=== PATIENT | female | born 1985 | race Caucasian/White ===

== ENCOUNTER 2017-01-31 13:57 | Emergency (ER) | payer MEDICAID ==
[~2017-01-31] VITALS: Ht 157.5 cm; Wt 65.0 kg
[~2017-01-31 13:57] MED LIST: FIORIC PO; HYDR-3533 PO; IBUP800T23 PO; IMIT25TA PO; MOBI7.5T PO; NAPR500 PO; ULTR50TA PO
[2017-01-31 13:58] VITALS: BP 117/56; PULSE 118; RESP 20; TEMP 98.7; O2SAT 100
[2017-01-31] MEDS ORDERED: PENI500T PO (15:32)
--- NOTE | 2017-01-31 15:33 | PD ---
HPI Chief Complaint: ENT Complaint Time Seen by Provider: 15:13 Travel History International Travel<30 days: No Contact w/Intl Traveler<30days: No Traveled to known affect area: No History of Present Illness HPI 32-year-old female since emergency department for evaluation of sore throat and fever 4 days. Patient reports pain with swallowing but is able to eat and drink without difficulty. Reporting subjective fevers. Symptoms severity mild. No alleviating factors. PFSH Past Medical History Hx Anticoagulant Therapy: No Anemia: Yes Cardiovascular Problems: No Chemotherapy: No Cerebrovascular Accident: No Diabetes: No Diminished Hearing: No Musculoskeletal: Yes (FRACTURED COCCYX 03/15) Respiratory: No Immunizations Current: No Seizures: Yes Tetanus Vaccination: Unknown ?: Not LMP: 01/31/17 : 6 Para: 2 Miscarriage: 4 Ectopic : Yes (surgery) Tubal Ligation: Yes (TUBAL WITH SURGERY) Past Surgical History Gynecologic Surgery: Yes Hysterectomy: No Other Surgery: Yes (PYLONIDAL CYST REMOVAL) Social History Alcohol Use: No Tobacco Use: Yes (5-6 cigarettes per day) Substance Use: Yes (hx of opiate use) Allergies-Medications (Allergen,Severity, Reaction): Coded Allergies: No Known Allergies (Verified , 01/31/17) Reported Meds & Prescriptions Reported Meds & Active Scripts Active No Active Prescriptions or Reported Medications Physical Exam Narrative GENERAL: Well-nourished, well-developed patient. SKIN: Focused skin assessment warm/dry. HEAD: Normocephalic. EYES: No scleral icterus. No injection or drainage. THROAT: pharyngeal injection, with exudates, and mild tonsillar hypertrophy. Airway is patent. NECK: Supple, trachea midline. No JVD or lymphadenopathy. CARDIOVASCULAR: Regular rate and rhythm without murmurs, gallops, or rubs. RESPIRATORY: Breath sounds equal bilaterally. No accessory muscle use. GASTROINTESTINAL: Abdomen soft, non-tender, nondistended. MUSCULOSKELETAL: No cyanosis, or edema. BACK: Nontender without obvious deformity. No CVA tenderness. Data Data Last Documented VS Vital Signs Date Time Temp Pulse Resp B/P (MAP) Pulse Ox O2 Delivery O2 Flow Rate FiO2 01/31/17 13:58 98.7 118 20 117/56 (76) 100 Room Air MDM Medical Decision Making Medical Screen Exam Complete: Yes Emergency Medical Condition: Yes Differential Diagnosis Strep pharyngitis, viral pharyngitis, unspecified URI Narrative Course 32-year-old female with chief complaint of sore throat and fever 4 days. On exam patient has pharyngeal erythema with tonsillar swelling and exudate. Patient be treated for strep pharyngitis. Diagnosis Primary Impression: Tonsillitis Referrals: [facility] Additional Instructions: Take the antibiotics as prescribed. Take [id number] Motrin and/or Tylenol as needed for pain. Stay well hydrated by drinking plenty of fluids. Scripts Penicillin V Potassium (Penicillin V Potassium) 500 Mg Tab 500 MG PO BID for Infection for 10 Days, #20 TAB 0 Refills Prov: Stacie Melton 01/31/17 Disposition: 01 DISCHARGE HOME Condition: Stable Stacie Melton Jan 31, 2017 15:33
== END 2017-01-31 15:36 | disposition home or self-care (01) ==
LOC: NEPK 13:57
DX: J03.90 Acute tonsillitis, unspecified (principal); R50.9 Fever, unspecified; Z72.0 Tobacco use
CPT/HCPCS: 99283

== ENCOUNTER 2017-11-26 09:21 | Inpatient (IN) ==
[2017-11-26] MEDS ORDERED: Sod Chloride 0.9% Inj 1,000 ML IV.SIG ONE ×2 (11:50→14:49)
--- NOTE | 2017-11-26 11:55 | ED ---
HPI General Chief complaint: Abdominal Pain Stated complaint: abd pain Time Seen by Provider: 11/26/17 11:41 History of Present Illness HPI narrative: Patient is a 32-year-old female presents emergency department for evaluation of abdominal pain and to "hernias" in her lower pelvis. Patient states the pain is been going on and off for the past 2 weeks, she states that when they were searching a couch in their backyard because they are moving she also got stuck with a dirty needle that was left over in the couch. This happened on the left long finger at the finger pad. Patient also endorses a 15 pound weight loss in the past 2 weeks. States she has not been able to eat or drink anything or keep anything down. Adamantly denies any IV drug abuse or substance abuse currently. No fevers no diarrhea no cough no congestion no blood in the emesis. States only occasional alcohol ingestion. No chest pain no shortness of breath no difficulty urinating, she just started her cycle today. Denies any vaginal discharge Onset (ago): week(s) Location: abdomen Radiation: non-radiation Severity: severe Pain Consistency: constant Relieving factors: none Exacerbating factors: none Associated symptoms: nausea/vomiting Treatments prior to arrival: none Related Data Home Medications Medication Instructions Recorded Confirmed No Known Home Medications 11/26/17 11/26/17 Allergies Allergy/AdvReac Type Severity Reaction Status Date / Time No Known Allergies Allergy Verified 11/26/17 11:43 Review of Systems Except as stated in HPI: all other systems reviewed are negative [facility] Medical History Medical History Migraines (Acute) Smoker (Acute) Surgical History Surgical History H/O tubal ligation (Acute) Social History Social History Substance History: No History of Abuse Second Hand Smoke Exposure: Yes Smoking Status: Current every day smoker Tobacco Type: Cigarettes How Often Do You Have a Drink Containing Alcohol: 2 to 4 times a month Hx Recent Travel: No Recent Travel in [facility] within the Last 8 Weeks: No Recent Out of Country Travel within the Last 8 Weeks: No Immunization History Tetanus Immunization: >5 Years Hx Influenza Vaccine This Season: No Exam Narrative Exam Narrative: GENERAL: Well-developed very thin female in no obvious distress. SKIN: Focused skin assessment warm/dry. No obvious track nesbitt seen, single pinpoint wound to the left finger pad on the long finger. HEAD: Atraumatic. Normocephalic. EYES: Pupils equal and round. No scleral icterus. No injection or drainage. ENT: No nasal bleeding or discharge. Mucous membranes pink and moist. NECK: Trachea midline. No JVD. CARDIOVASCULAR: Regular rate and rhythm. No murmur appreciated. RESPIRATORY: No accessory muscle use. Clear to auscultation. Breath sounds equal bilaterally. GASTROINTESTINAL: Abdomen soft, moderately tender throughout all 4 quadrants, voluntary guarding without any involuntary guarding. No rebound no percussive tenderness, nondistended. Hepatic and splenic margins not palpable. GENITOURINARY: Exam performed with female nurse spine nurse present all time, scant bloody discharge in the vaginal vault, no cervical motion tenderness no bimanual tenderness. Fairly foul-smelling discharge however. MUSCULOSKELETAL: No obvious deformities. No clubbing. No cyanosis. No edema. NEUROLOGICAL: Awake and alert. No obvious cranial nerve deficits. Motor grossly within normal limits. Normal speech. PSYCHIATRIC: Appropriate mood and affect; insight and judgment normal. Course Initial Documented Vital Signs Temperature 97.8 F 11/26/17 09:26 Pulse Rate 124 H 11/26/17 09:26 Respiratory Rate 18 11/26/17 09:26 Blood Pressure 136/95 H 11/26/17 09:26 Pulse Oximetry 100 11/26/17 09:26 Last Documented Vital Signs Temperature 99.6 F 11/26/17 16:00 Pulse Rate 93 H 11/26/17 16:00 Respiratory Rate 17 11/26/17 16:00 Blood Pressure 122/77 11/26/17 16:00 Pulse Oximetry 100 11/26/17 12:00 Medical Decision Making [facility] Narrative Medical decision making narrative: Patient room to the emergency department, she appears uncomfortable and much older than stated age. Denies IV drug abuse today. Was fairly tachycardic out in triage, has significantly elevated white blood cell count 24,000 with left shift, source appears to be the urine however somewhat contaminated. Pelvic exam inconclusive GC CT probe was sent, and given doxycycline Rocephin and azithromycin. Rocephin will also cover for UTI. Technically meets sepsis criteria, liter of normal saline was given, lactic acid negative precluding the need for aggressive fluid resuscitation. The patient was discussed with Dr. Phillip for admission to the hospital for UTI with sepsis however PID is not definitively excluded. A CT of her abdomen was obtained and did not show any obvious abnormality. Vital signs have been stable Differential Diagnosis Differential Diagnosis: Sepsis, PID, UTI, pyelonephritis, appendicitis, acute abdomen unlikely. Lab Data Result diagrams: 11/26/17 12:00 11/26/17 12:00 Lab Results 11/26/17 11/26/17 11/26/17 Range/Units 12:00 12:00 12:41 WBC 24.7 H (4.0-11.0) th/mm3 RBC 4.33 (4.00-5.30) mil/mm3 Hgb 13.1 (11.6-15.3) gm/dL Hct 38.9 (35.0-46.0) % MCV 89.8 (80.0-100.0) fL MCH 30.4 (27.0-34.0) pg MCHC 33.8 (32.0-36.0) % RDW 15.5 (11.6-17.2) % Plt Count 419 (150-450) th/mm3 MPV 8.1 (7.0-11.0) fL Neut % (Auto) 92.1 H (16.0-70.0) % Lymph % (Auto) 4.5 L (9.0-44.0) % [place] % (Auto) 3.3 (0.0-8.0) % Eos % (Auto) 0.0 (0.0-4.0) % Baso % (Auto) 0.1 (0.0-2.0) % Neut # (Auto) 22.8 H (1.8-7.7) th/mm3 Lymph # (Auto) 1.1 (1.0-4.8) th/mm3 [place] # (Auto) 0.8 (0.0-0.9) th/mm3 Eos # (Auto) 0.0 (0.0-0.4) th/mm3 Baso # (Auto) 0.0 (0.0-0.2) th/mm3 WBC Differential . Differential Comment Auto diff final Sodium 138 (136-145) meq/L Potassium 3.7 (3.5-5.1) meq/L Chloride 105 (98-107) meq/L Carbon Dioxide 23.8 (21.0-32.0) meq/L Anion Gap 9 (5-15) meq/L BUN 7 (7-18) mg/dL Creatinine 0.64 (0.50-1.00) mg/dL Estimated GFR Greater than 89 (>89) mL/min Random Glucose 124 H (74-106) mg/dL Lactic Acid (0.4-2.0) mmol/L Calcium 9.0 (8.5-10.1) mg/dL Total Bilirubin 0.5 (0.2-1.0) mg/dL AST 13 L (15-37) U/L ALT 23 (10-53) U/L Alkaline Phosphatase 97 (45-117) U/L Total Protein 7.2 (6.4-8.2) g/dL Albumin 3.3 L (3.4-5.0) g/dL Lipase 53 L (73-393) U/L Urine Color Yellow (Yellw/Straw) Urine Clarity Hazy H (Clear) Urine pH 7.0 (5.0-8.5) Ur Specific [place] 1.019 (1.002-1.035) Urine Protein 30 H (Neg-Trace) mg/dL Urine Glucose (UA) Negative (Negative) mg/dL Urine Ketones 20 (Negative) mg/dL Urine Occult Blood Moderate H (Negative) Urine Nitrate Negative (Negative) Urine Bilirubin Negative (Negative) Urine Urobilinogen 4 or greater (Less than 2) mg/dL Ur Leukocyte Esterase Small H (Negative) Urine RBC 7 H (0-3) /hpf Urine WBC 56 H (0-5) /hpf Urine WBC Clumps Rare H (None) Ur Squamous Epith Cells 8 (0-5) /hpf Urine Bacteria Many H (None) /hpf Urine Mucus Many H (Occasional) /lpf Micro UA Comment Culture indicated Urine Culture Comments Culture indicated Clue Cells (Wet Prep) (None Seen) Trichomonas (Wet Prep) (None Seen) Yeast (Wet Prep) (None Seen) Urine Opiates Screen (Neg) Ur Barbiturates Screen (Neg) Ur Amphetamines Screen (Neg) U Benzodiazepines Scrn (Neg) Urine Cocaine Screen (Neg) U Cannabinoids Screen (Neg) 11/26/17 11/26/17 11/26/17 Range/Units 12:41 14:35 15:20 WBC (4.0-11.0) th/mm3 RBC (4.00-5.30) mil/mm3 Hgb (11.6-15.3) gm/dL Hct (35.0-46.0) % MCV (80.0-100.0) fL MCH (27.0-34.0) pg MCHC (32.0-36.0) % RDW (11.6-17.2) % Plt Count (150-450) th/mm3 MPV (7.0-11.0) fL Neut % (Auto) (16.0-70.0) % Lymph % (Auto) (9.0-44.0) % [place] % (Auto) (0.0-8.0) % Eos % (Auto) (0.0-4.0) % Baso % (Auto) (0.0-2.0) % Neut # (Auto) (1.8-7.7) th/mm3 Lymph # (Auto) (1.0-4.8) th/mm3 [place] # (Auto) (0.0-0.9) th/mm3 Eos # (Auto) (0.0-0.4) th/mm3 Baso # (Auto) (0.0-0.2) th/mm3 WBC Differential Differential Comment Sodium (136-145) meq/L Potassium (3.5-5.1) meq/L Chloride (98-107) meq/L Carbon Dioxide (21.0-32.0) meq/L Anion Gap (5-15) meq/L BUN (7-18) mg/dL Creatinine (0.50-1.00) mg/dL Estimated GFR (>89) mL/min Random Glucose (74-106) mg/dL Lactic Acid 1.4 (0.4-2.0) mmol/L Calcium (8.5-10.1) mg/dL Total Bilirubin (0.2-1.0) mg/dL AST (15-37) U/L ALT (10-53) U/L Alkaline Phosphatase (45-117) U/L Total Protein (6.4-8.2) g/dL Albumin (3.4-5.0) g/dL Lipase (73-393) U/L Urine Color (Yellw/Straw) Urine Clarity (Clear) Urine pH (5.0-8.5) Ur Specific [place] (1.002-1.035) Urine Protein (Neg-Trace) mg/dL Urine Glucose (UA) (Negative) mg/dL Urine Ketones (Negative) mg/dL Urine Occult Blood (Negative) Urine Nitrate (Negative) Urine Bilirubin (Negative) Urine Urobilinogen (Less than 2) mg/dL Ur Leukocyte Esterase (Negative) Urine RBC (0-3) /hpf Urine WBC (0-5) /hpf Urine WBC Clumps (None) Ur Squamous Epith Cells (0-5) /hpf Urine Bacteria (None) /hpf Urine Mucus (Occasional) /lpf Micro UA Comment Urine Culture Comments Clue Cells (Wet Prep) None seen (None Seen) Trichomonas (Wet Prep) None seen (None Seen) Yeast (Wet Prep) None seen (None Seen) Urine Opiates Screen Neg (Neg) Ur Barbiturates Screen Neg (Neg) Ur Amphetamines Screen Neg (Neg) U Benzodiazepines Scrn Neg (Neg) Urine Cocaine Screen Neg (Neg) U Cannabinoids Screen Pos H (Neg) Imaging Data Radiologist's impression: Abdomen/Pelvis CT 11/26/17 11:49 CONCLUSION: 1. Nonspecific, nonobstructive bowel gas pattern which may represent a mild ileus and/or gastroenteritis. 2. Unremarkable gallbladder. Discharge Plan Discharge Disposition Patient Disposition: 30 Still Patient Discharge Details Diagnosis: UTI (urinary tract infection), Sepsis Physicians Team ED Provider: Judah Darnell Primary Care Provider: Primary Care Kianna Edwards Attending Provider: Mick Meraz Discharge Interventions Interventions: Vital Signs Last Done: 11/26/17 16:00 Status ED Status: Admitted Observation Patient
[2017-11-26] MEDS ORDERED: Diatrizoate Meglum/Diatrizoate Sod Liq 9 ML UDC ONE (12:12)
[2017-11-26] MEDS ORDERED: Diatrizoate Meglum/Diatrizoate Sod Liq 9 ML UDC PO ONE (12:45)
[2017-11-26 13:04] LABS: Baso % (Auto) 0.1 % (0.0-2.0); Hematocrit 38.9 % (35.0-46.0); Hemoglobin 13.1 gm/dL (11.6-15.3); Lymph # (Auto) 1.1 th/mm3 (1.0-4.8); Lymph % (Auto) 4.5 % (9.0-44.0); Mean Corpuscular HGB Conc 33.8 % (32.0-36.0); Mean Corpuscular Hemoglobin 30.4 pg (27.0-34.0); Mean Corpuscular Volume 89.8 fL (80.0-100.0); Mean Platelet Volume 8.1 fL (7.0-11.0); Mono # (Auto) 0.8 th/mm3 (0.0-0.9); Mono % (Auto) 3.3 % (0.0-8.0); Neut # (Auto) 22.8 th/mm3 (1.8-7.7); Neut % (Auto) 92.1 % (16.0-70.0); Platelet Count 419 th/mm3 (150-450); Red Blood Count 4.33 mil/mm3 (4.00-5.30); Red Cell Distribution Width 15.5 % (11.6-17.2); White Blood Count 24.7 th/mm3 (4.0-11.0)
[2017-11-26 13:45] LABS: Bilirubin,Urine Negative (Negative); Clarity,Urine Hazy (Clear); Color,Urine Yellow (Yellw/Straw); Glucose,Urine (UA) Negative (Negative); Leukocyte Esterase,Urine Small (Negative); Mucus,Urine Many /lpf (Occasional); Nitrite,Urine Negative (Negative); Specific Gravity,Urine 1.019 (1.002-1.035); Squamous Epithelial Cell,Urine 8 /hpf (0-5); Urobilinogen,Urine 4 or Greater mg/dL (Less than 2)
[2017-11-26 13:46] LABS: Bacteria,Urine Many /hpf
[2017-11-26 13:50] LABS: Anion Gap 9 meq/L (5-15); Blood Urea Nitrogen 7 mg/dL (7-18); Carbon Dioxide 23.8 meq/L (21.0-32.0); Chloride 105 meq/L (98-107); Glomerular Filtration Rate Greater Than 89 mL/min (>89); Glucose,Random 124 mg/dL (74-106); Potassium 3.7 meq/L (3.5-5.1); Sodium 138 meq/L (136-145)
[2017-11-26 13:51] LABS: Alanine Aminotransferase 23 U/L (10-53); Albumin 3.3 g/dL (3.4-5.0); Alkaline Phosphatase 97 U/L (45-117); Aspartate Aminotransferase 13 U/L (15-37); Lipase 53 U/L (73-393); Total Protein 7.2 g/dL (6.4-8.2)
--- NOTE | 2017-11-26 14:22 | CT ---
EXAM DATE: 11/26/2017 2:01 PM EDT AGE/SEX: 32 years / Female INDICATIONS: Diffuse abdominal pain. CLINICAL DATA: This is the patient's initial encounter. Patient reports that signs and symptoms have been present for 1 day and indicates a pain score of 7/10. MEDICAL/SURGICAL HISTORY: None. Tubal ligation. ORAL CONTRAST: Prescribed oral contrast ingested. RADIATION DOSE: 4.87 CTDI (mGy) COMPARISON: [facility] [place], CT ABDOMEN & PELVIS W CONTRAST, 04/02/2015. . TECHNIQUE: Multiple contiguous axial images were obtained through the abdomen and pelvis following b olus infusion of 90 ml Omnipaque 350 (iohexol) nonionic water-soluble contrast as a single exam dos e. Prescribed oral contrast ingested. Using automated exposure control and adjustment of the mA and/ or kV according to patient size, radiation dose was kept as low as reasonably achievable to obtain op timal diagnostic quality images. DICOM format image data is available electronically for review and comparison. FINDINGS: Lower Lungs: The visualized lower lungs are clear. Liver: The liver has a homogeneous density without space-occupying lesion. There is no dilation of th e biliary tree. Spleen: Homogeneous density without enlargement. Pancreas: Unremarkable without mass or calcification. Kidneys: Normal in size and shape. No evidence of mass or hydronephrosis. Adrenal Glands: Unremarkable. Aorta: The aorta and proximal iliac vessels are grossly unremarkable without aneurysmal dilation. Bowel/Mesentery: There are multiple loops of nondilated air-containing small bowel with several smal l air-fluid levels. Gas and stool is noted throughout the colon. There is no free air or fluid. Abdominal Wall: Intact. Retroperitoneum: No evidence of adenopathy in the retrocrural, para-aortic, or deep pelvic regions. Bladder: Contours are smooth. Reproductive Organs: No abnormal masses or calcifications seen. Inguinal: The inguinal region is unremarkable without evidence of adenopathy. Bony Structures: Unremarkable. CONCLUSION: 1. Nonspecific, nonobstructive bowel gas pattern which may represent a mild ileus and/or gastroenter itis. 2. Unremarkable gallbladder. Electronically signed by: Willie Ron MD 11/26/2017 2:20 PM EDT
[2017-11-26] MEDS ORDERED: Morphine Inj 4 MG/ML Vial IV.PUSH ONE (15:12)
[2017-11-26] MEDS ORDERED: Azithromycin 250 MG Tablet PO ONE (15:12)
[2017-11-26 16:03] LABS: Amphetamine Screen,Urine Neg (Neg); Barbiturate Screen,Urine Neg (Neg); Cannabinoid Screen,Urine Pos (Neg); Cocaine Screen,Urine Neg (Neg)
[2017-11-26 16:13] LABS: Opiate Screen,Urine Neg (Neg)
[2017-11-26] MEDS ORDERED: Bisacodyl 10 MG Supp RECTAL PRN (16:30)
[2017-11-26] MEDS ORDERED: Acetaminophen 325 MG Tablet PO PRN ×2 (16:30→16:34)
[2017-11-26] MEDS ORDERED: Temazepam 15 MG Capsule PO PRN (16:30)
[2017-11-26] MEDS ORDERED: Naloxone Inj 0.4 MG/ML Vial IV.PUSH PRN (16:34)
[2017-11-26] MEDS ORDERED: Morphine Inj 4 MG/ML Vial IV.PUSH PRN ×2 (16:34)
--- NOTE | 2017-11-26 17:19 | P.HPIM ---
History of Present Illness Service: [facility] Primary Care Physician: CRISSY ROSE DO Chief Complaint: ABDOMINAL PAIN History of Present Illness: Patient is a 32-year-old female who appears much older than her stated age who presents with abdominal pain in her pelvis. Patient states the pain has been going on now for the past couple weeks. She states that they were recently searching a couch in their backyard because they are moving. She also states she gets stuck with a dirty needle was left over on the couch. Happened in her left long finger at the finger pad. Endorses a 15 pound weight loss in the past 2 weeks. States she has not been able to eat or drink anything or keep anything down. She denies any IV drug use or substance abuse. Denies any fevers or diarrhea cough or congestion or blood in the emesis. She states occasional alcohol use. Smokes a pack a day. Denies any chest pain or shortness of breath and some difficulty urinating. She states she just started her menstrual cycle today. Denies any vaginal discharge. She states the pain is severe. Has had some nausea and vomiting and some back pain Found to have urinary tract infection. Emergency department was seen by the ER physician had a pelvic exam and was treated with Rocephin and doxycycline and Zithromax for suspected pelvic inflammatory disease Review of Systems All other systems reviewed negative except as stated in HPI Constitutional: Reports anorexia, Reports body ache(s), Reports chills, Reports fatigue, Reports malaise, Reports weight loss, Denies daytime sleepiness, Denies excessive sweating, Denies fever(s), Denies headache(s), Denies increased appetite, Denies lack of energy, Denies night sweats, Denies weakness , Denies weight gain Eyes: Denies blind spots, Denies blurry vision, Denies bulging eyes, Denies discharge, Denies dry eyes, Denies floaters, Denies pain, Denies requires corrective lenses Ears, Nose, Mouth, and Throat: Denies abnormal hearing, Denies dental pain, Denies ear pain, Denies lip swelling, Denies nasal discharge, Denies nose pain, Denies ringing in the ears, Denies throat swelling Cardiovascular: Denies chest pain, Denies fainting, Denies irregular heart rhythm, Denies lightheadedness, Denies rapid, pounding, or irregular heartbeat, Denies shortness of breath with activity, Denies shortness of breath causing sudden awakening Respiratory: Denies change in phlegm color, Denies excessive phlegm production, Denies shortness of breath, Denies wheezing Gastrointestinal: Reports abdominal pain, Reports nausea Musculoskeletal: Reports back pain, Denies abnormal walking, Denies deformity, Denies loss of height, Denies radiating pain into limb Skin/Breast: Denies bleeding lesions, Denies breast pain, Denies hair loss, Denies non-healing lesions, Denies skin ulcer Neurologic: Denies abnormal hearing, Denies abnormal walking, Denies dizziness, Denies localized weakness, Denies other visual disturbances, Denies seizure- like activity, Denies tingling/numbness/burning sensations Psychiatric: Denies abnormal sleep pattern, Denies change in sex drive, Denies hearing things others do not hear Endocrine: Denies cold intolerance, Denies increased hunger, Denies rapid, pounding, or irregular heartbeat Hematologic/Lymphatic: Denies easy bleeding, Denies easy bruising Allergic/Immunologic: Denies GI upset with certain foods, Denies hives, Denies seasonal runny nose, Denies throat swelling PMFSH - History History Provided By: Patient - Medical History Medical History: Medical History (Last Updated 11/26/17 @ 16:58 by Mick Meraz DO) Migraines Smoker - Surgical History Surgical History: Surgical History (Last Updated 11/26/17 @ 11:47 by Dayanna Jackman) H/O tubal ligation - Tobacco History Second Hand Smoke Exposure: Yes Tobacco Use In Past 30 Days: Yes Smoking Status: Current every day smoker Tobacco Type: Cigarettes - Alcohol History How Often Do You Have a Drink Containing Alcohol: 2 to 4 times a month - Substance Use History Substance History: No History of Abuse - Travel History History of Recent Travel: No Recent Travel in the [place] Within the Last 8 Weeks: No Recent Travel Out of the Country Within the Last 8 Weeks: No - Immunization History Tetanus Immunization: >5 Years Hx Influenza Vaccine This Season: No Medications and Allergies Active Medications: Active Medications Acetaminophen (Tylenol) 650 mg PO Q4H PRN PRN Reason: Temp > 100.4 Acetaminophen (Tylenol) 650 mg PO Q6H PRN PRN Reason: PAIN SCALE 1 TO 2 Al Hydroxide/Mg Hydroxide (Milk Of Magnesia Liq) 30 ml PO Q12H PRN PRN Reason: Mild Constipation Bisacodyl (Dulcolax Supp) 10 mg RECTAL DAILY PRN PRN Reason: SEVERE CONSITIPATION Clonidine HCl (Catapres) 0.1 mg PO Q6H PRN PRN Reason: FOR SBP>160 OR DBP >95 Enoxaparin Sodium (Lovenox Inj) 40 mg SQ Q24H MATTHIAS Sodium Chloride (Ns Inj) 1,000 mls @ 100 mls/hr IV.CONT .Q10H MATTHIAS Ceftriaxone Sodium 1,000 mg/ (Sodium Chloride) 100 mls @ 200 mls/hr IV.SIG Q24H MATTHIAS Lactulose (Lactulose Liq) 30 ml PO DAILY PRN PRN Reason: SEVERE CONSITIPATION Morphine Sulfate (Morphine Inj) 2 mg IV.PUSH Q3H PRN PRN Reason: PAIN 3-5; IF UABLE TO TAKE PO Morphine Sulfate (Morphine Inj) 4 mg IV.PUSH Q3H PRN PRN Reason: PAIN 6-10;IF UNABLE TO TAKE PO Naloxone HCl (Narcan Inj) 0.4 mg IV.PUSH UNSCH PRN PRN Reason: SEE LABEL COMMENTS Ondansetron HCl (Zofran Odt) 4 mg PO Q6H PRN PRN Reason: NAUSEA OR VOMITING Oxycodone/Acetaminophen (Percocet 10/325 Mg) 1 tab PO Q6H PRN PRN Reason: PAIN SCALE 6 TO 10 Oxycodone/Acetaminophen (Percocet 5/325 Mg) 1 tab PO Q6H PRN PRN Reason: PAIN SCALE 3 TO 5 Senna/Docusate Sodium (Bettie-Colace) 1 tab PO BID MATTHIAS Sennosides (Senokot) 17.2 mg PO Q12H PRN PRN Reason: Moderate Constipation Sodium Chloride (Ns Flush) 2 ml IV.FLUSH PRN PRN PRN Reason: FLUSH AFTER USING IV ACCESS Last Admin: 11/26/17 15:24 Dose: 2 ml Temazepam (Restoril) 15 mg PO HS PRN PRN Reason: INSOMNIA Allergies Allergy/AdvReac Type Severity Reaction Status Date / Time No Known Allergies Allergy Verified 11/26/17 11:43 Home Medications Medication Instructions Recorded Confirmed Type No Known Home Medications 11/26/17 11/26/17 History Exam Vital signs: Vital Signs 11/26/17 09:26 07/24/18 12:00 Temperature 97.8 F 97.9 F Pulse Rate 124 H 98 H Respiratory Rate 18 18 Blood Pressure 136/95 H 124/81 Pulse Oximetry 100 100 Intake & Output 11/25/17 11/26/17 11/26/17 18:59 06:59 18:59 Weight 49.895 kg Narrative: GENERAL: Awake alert and oriented 3 talkative and cooperative appears much older than stated age very thin appearing female SKIN: Warm and dry. Multiple tattoos HEAD: Atraumatic. Normocephalic. EYES: Pupils equal and round. No scleral icterus. No injection or drainage. ENT: No nasal bleeding or discharge. Mucous membranes pink and moist. Poor dentition NECK: Trachea midline. No JVD. Supple CARDIOVASCULAR: Regular rate and rhythm. S1-S2 no S3 or S4 RESPIRATORY: No accessory muscle use. Clear to auscultation. Breath sounds equal bilaterally. GASTROINTESTINAL: Abdomen soft, non-tender, nondistended. Hepatic and splenic margins not palpable. MUSCULOSKELETAL: Extremities without clubbing, cyanosis, or edema. No obvious deformities. Has some CVA tenderness in the back NEUROLOGICAL: Awake and alert. No obvious cranial nerve deficits. Motor grossly within normal limits. Five out of 5 muscle strength in the arms and legs. Normal speech. PSYCHIATRIC: Appropriate mood and affect; insight and judgment normal. Results - Labs CBC & Chem 7: 11/26/17 12:00 11/26/17 12:00 Labs: Short CBC 11/26/17 Range/Units 12:00 WBC 24.7 H (4.0-11.0) th/mm3 Hgb 13.1 (11.6-15.3) gm/dL Hct 38.9 (35.0-46.0) % Plt Count 419 (150-450) th/mm3 BMP 11/26/17 12:00 Sodium 138 Potassium 3.7 Chloride 105 Carbon Dioxide 23.8 BUN 7 Creatinine 0.64 Calcium 9.0 Liver Function 11/26/17 Range/Units 12:00 Total Bilirubin 0.5 (0.2-1.0) mg/dL AST 13 L (15-37) U/L ALT 23 (10-53) U/L Alkaline Phosphatase 97 (45-117) U/L Albumin 3.3 L (3.4-5.0) g/dL Urine 11/26/17 Range/Units 12:41 Urine Color Yellow (Yellw/Straw) Urine Clarity Hazy H (Clear) Urine pH 7.0 (5.0-8.5) Ur Specific [place] 1.019 (1.002-1.035) Urine Protein 30 H (Neg-Trace) mg/dL Urine Glucose (UA) Negative (Negative) mg/dL - Imaging Impressions Abdomen/Pelvis CT 11/26/17 11:49 CONCLUSION: 1. Nonspecific, nonobstructive bowel gas pattern which may represent a mild ileus and/or gastroenteritis. 2. Unremarkable gallbladder. Caprini VTE Risk Assessment Caprini VTE Risk Assessment: No/Low Risk (score <= 1) Caprini Risk Assessment Model: Point Value = 1 Point Value = 2 Point Value = 3 Point Value = 5 Age 41-60 Minor surgery BMI > 25 kg/m2 Swollen legs Varicose veins or History of unexplained or recurrent spontaneous Oral contraceptives or hormone replacement Sepsis (< 1 month) Serious lung disease, including pneumonia (< 1 month) Abnormal pulmonary function Acute myocardial infarction Congestive heart failure (< 1 month) History of inflammatory bowel disease Medical patient at bed rest Age 61-74 Arthroscopic surgery Major open surgery (> 45 min) Laparoscopic surgery (> 45 min) Malignancy Confined to bed (> 72 hours) Immobilizing plaster cast Central venous access Age >= 75 History of VTE Family history of VTE Factor V Leiden Prothrombin [id number] Lupus anticoagulant Anticardiolipin antibodies Elevated serum homocysteine Heparin-induced thrombocytopenia Other congenital or acquired thrombophilia Stroke (< 1 month) Elective arthroplasty Hip, pelvis, or leg fracture Acute spinal cord injury (< 1 month) Prophylaxis Regimen: Total Risk Factor Score Risk Level Prophylaxis Regimen 0-1 Low Early ambulation 2 Moderate Order ONE of the following: *Sequential Compression Device (SCD) *Heparin 5000 units SQ BID 3-4 Higher Order ONE of the following medications: *Heparin 5000 units SQ TID *Enoxaparin/Lovenox 40 mg SQ daily (WT < 150 kg, CrCl > 30 mL/min) *Enoxaparin/Lovenox 30 mg SQ daily (WT < 150 kg, CrCl > 10-29 mL/min) *Enoxaparin/Lovenox 30 mg SQ BID (WT < 150 kg, CrCl > 30 mL/min) AND/OR *Sequential Compression Device (SCD) 5 or more Highest Order ONE of the following medications: *Heparin 5000 units SQ TID (Preferred with Epidurals) *Enoxaparin/Lovenox 40 mg SQ daily (WT < 150 kg, CrCl > 30 mL/min) *Enoxaparin/Lovenox 30 mg SQ daily (WT < 150 kg, CrCl > 10-29 mL/min) *Enoxaparin/Lovenox 30 mg SQ BID (WT < 150 kg, CrCl > 30 mL/min) AND *Sequential Compression Device (SCD) Assessment and Plan - Plan Urinary tract infection continue on Rocephin and fluids and Tylenol as needed and pain control Abdominal pain status post CAT scan stable continue Rocephin and fluids and Tylenol Sepsis/surgery due to UTI continue on IV fluid rehydration Tylenol as needed antibiotics with Rocephin is also been given a dose of Zithromax and doxycycline per the emergency department Leukocytosis suspect secondary to sepsis and UTI continue on the Rocephin and fluids and Marijuana use recommend cessation Diet and activity as tolerated Continue aggressive fluid rehydration A.m. labs Pain medications as needed History of migraine headaches currently not having any Code Status: Full code Discussed Condition With: RN and patient and family and emergency room physician Discharge Planning: Pending improvement
[2017-11-26] MEDS: Sod Chloride 0.9% Inj 1,000 ML IV.CONT SCH (17:22)
[2017-11-26] MEDS: Enoxaparin Inj 40 MG/0.4 ML Syringe SQ SCH (17:22)
[2017-11-26] MEDS: oxyCODONE/Acetaminophen 10/325 Tablet PO PRN (17:48)
[2017-11-26] MEDS: Senna/Docusate Sodium 8.6/50 MG Tablet PO SCH (21:17)
[2017-11-27] MEDS: oxyCODONE/Acetaminophen 10/325 Tablet PO PRN ×4 (00:55→21:34)
[2017-11-27] MEDS: Sod Chloride 0.9% Inj 1,000 ML IV.CONT SCH ×4 (00:59→23:53)
[2017-11-27 07:33] LABS: Baso % (Auto) 0.2 % (0.0-2.0); Eos # (Auto) 0.1 th/mm3 (0.0-0.4); Eos % (Auto) 0.6 % (0.0-4.0); Hematocrit 32.3 % (35.0-46.0); Hemoglobin 10.6 gm/dL (11.6-15.3); Lymph % (Auto) 13.5 % (9.0-44.0); Mean Corpuscular HGB Conc 32.9 % (32.0-36.0); Mean Corpuscular Hemoglobin 29.5 pg (27.0-34.0); Mean Corpuscular Volume 89.7 fL (80.0-100.0); Mean Platelet Volume 8.1 fL (7.0-11.0); Mono # (Auto) 1.1 th/mm3 (0.0-0.9); Mono % (Auto) 7.4 % (0.0-8.0); Neut # (Auto) 11.4 th/mm3 (1.8-7.7); Neut % (Auto) 78.3 % (16.0-70.0); Platelet Count 364 th/mm3 (150-450); Red Blood Count 3.61 mil/mm3 (4.00-5.30); Red Cell Distribution Width 15.2 % (11.6-17.2); White Blood Count 14.5 th/mm3 (4.0-11.0)
[2017-11-27 07:50] LABS: Alanine Aminotransferase 18 U/L (10-53); Albumin 2.7 g/dL (3.4-5.0); Anion Gap 7 meq/L (5-15); Aspartate Aminotransferase 11 U/L (15-37); Blood Urea Nitrogen 7 mg/dL (7-18); Calcium 7.9 mg/dL (8.5-10.1); Carbon Dioxide 25.5 meq/L (21.0-32.0); Chloride 113 meq/L (98-107); Cholesterol 99 mg/dL (120-200); Glomerular Filtration Rate Greater Than 89 mL/min (>89); Glucose,Random 80 mg/dL (74-106); Magnesium 1.9 mg/dL (1.5-2.5); Potassium 3.8 meq/L (3.5-5.1); Sodium 145 meq/L (136-145)
[2017-11-27 07:58] LABS: Alkaline Phosphatase 88 U/L (45-117); Chol/HDL Ratio 2.02 Ratio; Free T4 (Free Thyroxine) 1.05 ng/dL (0.76-1.46); LDL Cholesterol,Calculated 41 mg/dL (0-99); Phosphorus 2.2 mg/dL (2.5-4.9); Total Protein 5.8 g/dL (6.4-8.2); Triglycerides 44 mg/dL (42-150)
[2017-11-27] MEDS: Senna/Docusate Sodium 8.6/50 MG Tablet PO SCH ×2 (08:05→20:49)
--- NOTE | 2017-11-27 11:50 | P.PNIM ---
Subjective Interval history: Patient reports bilateral inguinal tender lumps. She also admits that she has been having some vaginal discharge over the past few days. Tolerating her diet. Still reports some diffuse abdominal discomfort. Physical Exam Vital signs: Vital Signs 11/26/17 12:00 11/26/17 16:00 11/26/17 17:30 Temperature 97.9 F 99.6 F 100.1 F H Pulse Rate 98 H 93 H 96 H Respiratory Rate 18 17 16 Blood Pressure 124/81 122/77 133/68 Pulse Oximetry 100 11/26/17 20:00 11/27/17 00:00 11/27/17 08:00 Temperature 97.7 F 97.9 F 97.6 F Pulse Rate 92 H 82 81 Respiratory Rate 18 18 17 Blood Pressure 107/53 L 105/56 L 106/58 L Pulse Oximetry 98 99 97 Intake & Output 11/26/17 11/27/17 11/27/17 18:59 06:59 18:59 Intake Total 2100 / 2100 1000 / 1000 Balance 2100 / 2100 1000 / 1000 Weight 49.895 kg Intake: IV 2100 / 2100 1000 / 1000 NS Inj 1,000 ML @ 100 mls/hr IV 1000 / 1000 .CONT .Q10H MATTHIAS Rx#:[id number] NS Inj 1,000 ML @ Wide Open IV. 1999 / 1999 SIG BOLUS ONE Rx#:[id number] Rocephin Inj 1,000 MG In NS Inj 100 / 100 100 ML @ 200 mls/hr IV.SIG ONCE ONE Rx#:[id number] Other: # Voids 3 Date of Last Bowel Movement 11/23/17 Narrative: GENERAL: This is a well-nourished, well-developed patient, in no apparent distress. Patient examined with nurse Tovar. CARDIOVASCULAR: Normal rate and regular rhythm without murmurs, gallops, or rubs. RESPIRATORY: Good respiratory efforts. Breath sounds equal and clear to auscultation bilaterally. GASTROINTESTINAL: Abdomen soft, nondistended. Diffuse mild abdominal discomfort to palpation. Tender bilateral inguinal lymphadenopathy MUSCULOSKELETAL: Extremities without cyanosis, or edema. NEURO: Alert & Oriented x4 to person, place, time, situation. Moves all ext x4 PSYCH: Appropriate mood and affect. Results - Labs CBC & Chem 7: 11/27/17 06:25 11/27/17 06:25 Laboratory Results - last 24 hr 11/26/17 11/26/17 11/26/17 12:00 12:00 12:41 WBC 24.7 H RBC 4.33 Hgb 13.1 Hct 38.9 MCV 89.8 MCH 30.4 MCHC 33.8 RDW 15.5 Plt Count 419 MPV 8.1 Neut % (Auto) 92.1 H Lymph % (Auto) 4.5 L Baxter % (Auto) 3.3 Eos % (Auto) 0.0 Baso % (Auto) 0.1 Neut # (Auto) 22.8 H Lymph # (Auto) 1.1 Baxter # (Auto) 0.8 Eos # (Auto) 0.0 Baso # (Auto) 0.0 WBC Differential . Differential Comment Auto diff final Sodium 138 Potassium 3.7 Chloride 105 Carbon Dioxide 23.8 Anion Gap 9 BUN 7 Creatinine 0.64 Estimated GFR Greater than 89 Random Glucose 124 H Lactic Acid Calcium 9.0 Phosphorus Magnesium Total Bilirubin 0.5 AST 13 L ALT 23 Alkaline Phosphatase 97 Total Protein 7.2 Albumin 3.3 L Triglycerides Cholesterol LDL Cholesterol, Calc HDL Cholesterol Cholesterol/HDL Ratio Lipase 53 L TSH Free T4 Urine Color Yellow Urine Clarity Hazy H Urine pH 7.0 Ur Specific [place] 1.019 Urine Protein 30 H Urine Glucose (UA) Negative Urine Ketones 20 Urine Occult Blood Moderate H Urine Nitrate Negative Urine Bilirubin Negative Urine Urobilinogen 4 or greater Ur Leukocyte Esterase Small H Urine RBC 7 H Urine WBC 56 H Urine WBC Clumps Rare H Ur Squamous Epith Cells 8 Urine Bacteria Many H Urine Mucus Many H Micro UA Comment Culture indicated Urine Culture Comments Culture indicated Clue Cells (Wet Prep) Trichomonas (Wet Prep) Yeast (Wet Prep) Urine Opiates Screen Ur Barbiturates Screen Ur Amphetamines Screen U Benzodiazepines Scrn Urine Cocaine Screen U Cannabinoids Screen Chlam trachomat DNA PCR N.gonorrhoeae DNA (PCR) 11/26/17 11/26/17 11/26/17 12:41 14:35 14:35 WBC RBC Hgb Hct MCV MCH MCHC RDW Plt Count MPV Neut % (Auto) Lymph % (Auto) Baxter % (Auto) Eos % (Auto) Baso % (Auto) Neut # (Auto) Lymph # (Auto) Baxter # (Auto) Eos # (Auto) Baso # (Auto) WBC Differential Differential Comment Sodium Potassium Chloride Carbon Dioxide Anion Gap BUN Creatinine Estimated GFR Random Glucose Lactic Acid Calcium Phosphorus Magnesium Total Bilirubin AST ALT Alkaline Phosphatase Total Protein Albumin Triglycerides Cholesterol LDL Cholesterol, Calc HDL Cholesterol Cholesterol/HDL Ratio Lipase TSH Free T4 Urine Color Urine Clarity Urine pH Ur Specific [place] Urine Protein Urine Glucose (UA) Urine Ketones Urine Occult Blood Urine Nitrate Urine Bilirubin Urine Urobilinogen Ur Leukocyte Esterase Urine RBC Urine WBC Urine WBC Clumps Ur Squamous Epith Cells Urine Bacteria Urine Mucus Micro UA Comment Urine Culture Comments Clue Cells (Wet Prep) None seen Trichomonas (Wet Prep) None seen Yeast (Wet Prep) None seen Urine Opiates Screen Neg Ur Barbiturates Screen Neg Ur Amphetamines Screen Neg U Benzodiazepines Scrn Neg Urine Cocaine Screen Neg U Cannabinoids Screen Pos H Chlam trachomat DNA PCR Not detected N.gonorrhoeae DNA (PCR) Detected 11/26/17 11/27/17 11/27/17 15:20 06:25 06:25 WBC 14.5 H RBC 3.61 L Hgb 10.6 L D Hct 32.3 L MCV 89.7 MCH 29.5 MCHC 32.9 RDW 15.2 Plt Count 364 MPV 8.1 Neut % (Auto) 78.3 H Lymph % (Auto) 13.5 Baxter % (Auto) 7.4 Eos % (Auto) 0.6 Baso % (Auto) 0.2 Neut # (Auto) 11.4 H Lymph # (Auto) 2.0 Baxter # (Auto) 1.1 H Eos # (Auto) 0.1 Baso # (Auto) 0.0 WBC Differential . Differential Comment Auto diff final Sodium 145 Potassium 3.8 Chloride 113 H D Carbon Dioxide 25.5 Anion Gap 7 BUN 7 Creatinine 0.48 L Estimated GFR Greater than 89 Random Glucose 80 Lactic Acid 1.4 Calcium 7.9 L D Phosphorus 2.2 L Magnesium 1.9 Total Bilirubin 0.2 AST 11 L ALT 18 Alkaline Phosphatase 88 Total Protein 5.8 L D Albumin 2.7 L D Triglycerides 44 Cholesterol 99 L LDL Cholesterol, Calc 41 HDL Cholesterol 49.0 Cholesterol/HDL Ratio 2.02 Lipase TSH 1.480 Free T4 1.05 Urine Color Urine Clarity Urine pH Ur Specific [place] Urine Protein Urine Glucose (UA) Urine Ketones Urine Occult Blood Urine Nitrate Urine Bilirubin Urine Urobilinogen Ur Leukocyte Esterase Urine RBC Urine WBC Urine WBC Clumps Ur Squamous Epith Cells Urine Bacteria Urine Mucus Micro UA Comment Urine Culture Comments Clue Cells (Wet Prep) Trichomonas (Wet Prep) Yeast (Wet Prep) Urine Opiates Screen Ur Barbiturates Screen Ur Amphetamines Screen U Benzodiazepines Scrn Urine Cocaine Screen U Cannabinoids Screen Chlam trachomat DNA PCR N.gonorrhoeae DNA (PCR) Microbiology 11/26/17 15:25 Blood - Peripheral Aerobic Blood Culture - Preliminary No growth in 1 day 11/26/17 15:25 Blood - Peripheral Anaerobic Blood Culture - Preliminary No growth in 1 day 11/26/17 15:20 Blood - Peripheral Aerobic Blood Culture - Preliminary No growth in 1 day 11/26/17 15:20 Blood - Peripheral Anaerobic Blood Culture - Preliminary No growth in 1 day - Imaging Impressions Abdomen/Pelvis CT 11/26/17 11:49 CONCLUSION: 1. Nonspecific, nonobstructive bowel gas pattern which may represent a mild ileus and/or gastroenteritis. 2. Unremarkable gallbladder. Assessment and Plan - Plan 32-year-old female admitted with urinary tract infection, possible PID. Rule out sepsis. Urinary tract infection, probable PID. Rule out sepsis. -GC PCR is positive. - Continue Rocephin. Patient also received doxycycline in the emergency room -Follow urine cultures. -Tylenol as needed and pain control Leukocytosis suspect secondary to UTI and pelvic infection. Marijuana use:: recommend cessation of recreational use. Discharge Planning: Anticipate DC early in AM based on culture results.
[2017-11-27] MEDS: Enoxaparin Inj 40 MG/0.4 ML Syringe SQ SCH (16:51)
[2017-11-27 18:10] LABS: Hemoglobin A1c 5.5 % (4.3-6.0)
[2017-11-28 01:43] VITALS: O2SAT 97
[2017-11-28 08:28] VITALS: BP 123/56; PULSE 80; RESP 16; TEMP 97.6
[2017-11-28] MEDS: Senna/Docusate Sodium 8.6/50 MG Tablet PO SCH (09:03)
[2017-11-28] MEDS: oxyCODONE/Acetaminophen 10/325 Tablet PO PRN (09:05)
--- NOTE | 2017-11-28 10:19 | P.DS ---
Date of admission: 11/26/17 17:16 Primary care physician: No Primary Care Physician Brief History from admission: HPI from the admitting physician: Patient is a 32-year-old female who appears much older than her stated age who presents with abdominal pain in her pelvis. Patient states the pain has been going on now for the past couple weeks. She states that they were recently searching a couch in their backyard because they are moving. She also states she gets stuck with a dirty needle was left over on the couch. Happened in her left long finger at the finger pad. Endorses a 15 pound weight loss in the past 2 weeks. States she has not been able to eat or drink anything or keep anything down. She denies any IV drug use or substance abuse. Denies any fevers or diarrhea cough or congestion or blood in the emesis. She states occasional alcohol use. Smokes a pack a day. Denies any chest pain or shortness of breath and some difficulty urinating. She states she just started her menstrual cycle today. Denies any vaginal discharge. She states the pain is severe. Has had some nausea and vomiting and some back pain Found to have urinary tract infection. Emergency department was seen by the ER physician had a pelvic exam and was treated with Rocephin and doxycycline and Zithromax for suspected pelvic inflammatory disease Update on the day of discharge 11/28/17: Patient reports she is feeling great today. She wants to go home. We discussed the need for her partner to get treated for gonorrhea. DS: Diagnosis - Discharge Diagnosis (1) Sepsis Status: Acute (2) UTI (urinary tract infection) Status: Acute (3) Pelvic inflammatory disease (PID) Status: Acute (4) Gonorrhea Status: Acute DS: Medications - Discharge Medications Prescriptions: cefuroxime axetil 500 mg PO Q12H #4 tab DS: Summary Hospital Course: 32-year-old female admitted with urinary tract infection and probable PID. Rule out sepsis. Probable PID and E. coli UTI. Sepsis ruled out. -GC PCR is positive. Discussed with the patient and her partner that he should get treated -Patient treated with Rocephin. She also received doxycycline in the emergency room -Urine culture grew E. coli. She is discharged on additional 2 days of cefuroxime to complete the course of treatment. Leukocytosis suspect secondary to UTI and pelvic infection. Marijuana use:: recommend cessation of recreational drugs. - Time Spent with Patient Total time spent providing and/or coordinating discharge services: - Quality: VTE Deep Vein Thrombosis/Pulmonary Embolism Present on Admission: No Exam Vital signs: Vital Signs 11/27/17 11:47 11/27/17 16:00 11/27/17 20:00 Temperature 97.3 F L 97.8 F 97.5 F L Pulse Rate 81 65 78 Respiratory Rate 17 17 20 Blood Pressure 97/64 L 118/61 107/55 L Pulse Oximetry 99 100 99 11/28/17 00:00 11/28/17 08:00 Temperature 97.8 F 97.6 F Pulse Rate 74 80 Respiratory Rate 18 16 Blood Pressure 108/64 123/56 L Pulse Oximetry 97 97 Intake & Output 11/27/17 11/28/17 11/28/17 18:59 06:59 18:59 Intake Total 2059 Balance 2059 Weight 51.1 kg Intake: IV 1100 / 1100 NS Inj 1,000 ML @ 100 mls/hr IV 1000 / 1000 .CONT .Q10H MATTHIAS Rx#:[id number] Rocephin Inj 1,000 MG In NS Inj 100 / 100 100 ML @ 200 mls/hr IV.SIG Q24H MATTHIAS Rx#:[id number] Oral 960 / 960 Other: # Voids 3 2 Date of Last Bowel Movement 11/24/17 Narrative: GENERAL: This is a well-nourished, well-developed patient, in no apparent distress. CARDIOVASCULAR: Normal rate and regular rhythm without murmurs, gallops, or rubs. RESPIRATORY: Good respiratory efforts. Breath sounds equal and clear to auscultation bilaterally. GASTROINTESTINAL: Abdomen soft, non-tender, non-distended. Normal active bowel sounds MUSCULOSKELETAL: Extremities without cyanosis, or edema. NEURO: Alert & Oriented x4 to person, place, time, situation. Moves all ext x4 PSYCH: Appropriate mood and affect. Results Procedures completed during hospitalization: None Labs on day of discharge: Labs from last 24 hours 11/27/17 11/26/17 06:25 12:41 Hemoglobin A1c 5.5 Urine Color Yellow Urine Clarity Hazy H Urine pH 7.0 Ur Specific [place] 1.019 Urine Protein 30 H Urine Glucose (UA) Negative Urine Ketones 20 Urine Occult Blood Moderate H Urine Nitrate Negative Urine Bilirubin Negative Urine Urobilinogen 4 or greater Ur Leukocyte Esterase Small H Urine RBC 7 H Urine WBC 56 H Urine WBC Clumps Rare H Ur Squamous Epith Cells 8 Urine Bacteria Many H Urine Mucus Many H Micro UA Comment Culture indicated Urine Culture Comments Culture indicated Preliminary micro results at discharge 11/26/17 15:25 Aerobic Blood Culture - Preliminary Blood - Peripheral No growth in 1 day Anaerobic Blood Culture - Preliminary No growth in 1 day 11/26/17 15:20 Aerobic Blood Culture - Preliminary Blood - Peripheral No growth in 1 day Anaerobic Blood Culture - Preliminary No growth in 1 day - Impressions ITS Impressions Abdomen/Pelvis CT 11/26/17 11:49 CONCLUSION: 1. Nonspecific, nonobstructive bowel gas pattern which may represent a mild ileus and/or gastroenteritis. 2. Unremarkable gallbladder. Discharge Plan - Discharge Disposition Patient Disposition: 01 Discharge Home - Discharge Condition Condition: Good - Discharge Order Discharge Orders: Discharge Order (Routine); Ordered 11/28/17 Ordered By: Sandi Paige - Physicians Team Primary Care Provider: Primary Care Kianna Edwards Attending Provider: Sandi Paige
== END 2017-11-28 09:58 | disposition home or self-care (01) ==
LOC: NEPD 09:21 → INTOOBSV 16:29 → NEDA 16:29 → N07 17:30
PROVIDERS: ADMIT Family Medicine; ATTEND Family Medicine